=== PATIENT | female | born 1965 | race Caucasian/White ===

== ENCOUNTER → 2019-05-13 14:25 | Outpatient (BNVA) | payer BC, SELFPAY | PROVIDERS: Family Provider Family Medicine; PCP Family Medicine; Visit Provider Anesthesiology | DX: M54.2 Cervicalgia (principal); M47.816 Spondylosis without myelopathy or radiculopathy, lumbar region; M17.12 Unilateral primary osteoarthritis, left knee; Z79.891 Long term (current) use of opiate analgesic | CPT/HCPCS: 99214 ==

== ENCOUNTER → 2019-07-08 13:37 | Outpatient (BNVA) | payer BC, SELFPAY | PROVIDERS: Family Provider Family Medicine; PCP Family Medicine; Visit Provider Anesthesiology | DX: M17.12 Unilateral primary osteoarthritis, left knee (principal); M47.816 Spondylosis without myelopathy or radiculopathy, lumbar region; M25.511 Pain in right shoulder; M25.512 Pain in left shoulder; Z79.891 Long term (current) use of opiate analgesic | CPT/HCPCS: 99214 ==

== ENCOUNTER → 2019-10-21 13:04 | Outpatient (BNVA) | payer BC, SELFPAY | PROVIDERS: Family Provider Family Medicine; PCP Family Medicine; Visit Provider Nurse Practitioner | DX: M54.2 Cervicalgia (principal); M47.816 Spondylosis without myelopathy or radiculopathy, lumbar region; M54.41 Lumbago with sciatica, right side; M54.42 Lumbago with sciatica, left side; Z79.891 Long term (current) use of opiate analgesic | CPT/HCPCS: 99214 ==

== ENCOUNTER → 2019-10-27 17:57 | Outpatient (BNVA) | payer BC, SELFPAY | PROVIDERS: Family Provider Family Medicine; PCP Family Medicine; Visit Provider Family Medicine | DX: I10 Essential (primary) hypertension (principal) | CPT/HCPCS: 80053; 80061 ==

== ENCOUNTER → 2019-12-22 10:54 | Outpatient (BNVA) | payer BC, SELFPAY | PROVIDERS: Family Provider Family Medicine; PCP Family Medicine; Visit Provider Anesthesiology | DX: M47.816 Spondylosis without myelopathy or radiculopathy, lumbar region (principal); M54.9 Dorsalgia, unspecified; M17.12 Unilateral primary osteoarthritis, left knee; M54.2 Cervicalgia; Z79.891 Long term (current) use of opiate analgesic | CPT/HCPCS: 99214 ==

== ENCOUNTER → 2020-02-18 10:46 | Outpatient (BNVA) | payer BC, SELFPAY | PROVIDERS: Family Provider Family Medicine; PCP Family Medicine; Visit Provider Anesthesiology | DX: G89.29 Other chronic pain (principal); M47.816 Spondylosis without myelopathy or radiculopathy, lumbar region; M54.9 Dorsalgia, unspecified; M54.2 Cervicalgia; Z79.891 Long term (current) use of opiate analgesic | CPT/HCPCS: 99214 ==

== ENCOUNTER → 2020-04-19 12:58 | Outpatient (BNVA) | payer MEDICARE, SELFPAY | PROVIDERS: Family Provider Family Medicine; PCP Family Medicine; Visit Provider Anesthesiology | DX: G89.29 Other chronic pain (principal); M47.816 Spondylosis without myelopathy or radiculopathy, lumbar region; M54.9 Dorsalgia, unspecified; M54.2 Cervicalgia; Z79.891 Long term (current) use of opiate analgesic | CPT/HCPCS: 99214 ==

== ENCOUNTER → 2020-04-20 13:20 | Outpatient (BNVA) | payer MEDICARE, SELFPAY | PROVIDERS: Family Provider Family Medicine; PCP Family Medicine; Visit Provider Specialist | DX: M17.12 Unilateral primary osteoarthritis, left knee (principal) | CPT/HCPCS: 73560; 73565 ==

== ENCOUNTER → 2020-06-15 13:19 | Outpatient (BNVA) | payer MEDICARE, SELFPAY | PROVIDERS: Family Provider Family Medicine; PCP Family Medicine; Visit Provider Anesthesiology | DX: G89.29 Other chronic pain (principal); M47.816 Spondylosis without myelopathy or radiculopathy, lumbar region; M54.2 Cervicalgia; M54.9 Dorsalgia, unspecified; M17.12 Unilateral primary osteoarthritis, left knee; Z79.891 Long term (current) use of opiate analgesic | CPT/HCPCS: 99214 ==

== ENCOUNTER → 2020-06-22 11:22 | Outpatient (BNVA) | payer MEDICARE, SELFPAY | PROVIDERS: Family Provider Family Medicine; PCP Family Medicine; Visit Provider Family Medicine | DX: I10 Essential (primary) hypertension (principal); E78.2 Mixed hyperlipidemia; M54.2 Cervicalgia; M54.9 Dorsalgia, unspecified; G89.29 Other chronic pain | CPT/HCPCS: 80053; 80061 ==

== ENCOUNTER → 2020-08-23 12:45 | Outpatient (BNVA) | payer MEDICARE, SELFPAY | PROVIDERS: Family Provider Family Medicine; PCP Family Medicine; Visit Provider Anesthesiology | DX: G89.29 Other chronic pain (principal); M47.816 Spondylosis without myelopathy or radiculopathy, lumbar region; M54.2 Cervicalgia; M17.12 Unilateral primary osteoarthritis, left knee; M54.9 Dorsalgia, unspecified; Z79.891 Long term (current) use of opiate analgesic | CPT/HCPCS: 99214 ==

== ENCOUNTER → 2020-10-04 15:10 | Outpatient (BNVA) | payer MEDICARE, SELFPAY | PROVIDERS: Family Provider Family Medicine; PCP Family Medicine; Referring Provider Dermatology; Visit Provider Orthopaedic Surgery | DX: G89.29 Other chronic pain (principal); M43.13 Spondylolisthesis, cervicothoracic region; M43.16 Spondylolisthesis, lumbar region | CPT/HCPCS: 72050; 72110 ==

== ENCOUNTER → 2020-10-20 13:26 | Outpatient (BNVA) | payer MEDICARE, SELFPAY | PROVIDERS: Family Provider Family Medicine; PCP Family Medicine; Visit Provider Anesthesiology | DX: G89.29 Other chronic pain (principal); M47.816 Spondylosis without myelopathy or radiculopathy, lumbar region; M54.9 Dorsalgia, unspecified; M54.2 Cervicalgia; Z79.891 Long term (current) use of opiate analgesic; Z87.891 Personal history of nicotine dependence | CPT/HCPCS: 99213; 99214 ==

== ENCOUNTER → 2020-10-31 17:48 | Outpatient (BNVA) | payer MEDICARE, SELFPAY | PROVIDERS: Family Provider Family Medicine; PCP Family Medicine; Visit Provider Family Medicine | DX: Z12.4 Encounter for screening for malignant neoplasm of cervix (principal); Z01.419 Encounter for gynecological examination (general) (routine) without abnormal findings; Z11.3 Encounter for screening for infections with a predominantly sexual mode of transmission; Z72.51 High risk heterosexual behavior | CPT/HCPCS: 87491; 87591; 87661; 88175 ==

== ENCOUNTER → 2020-11-17 14:22 | Outpatient (BNVA) | payer MEDICARE, SELFPAY | PROVIDERS: Family Provider Family Medicine; PCP Family Medicine; Visit Provider Anesthesiology | DX: G89.29 Other chronic pain (principal); M47.816 Spondylosis without myelopathy or radiculopathy, lumbar region; M54.2 Cervicalgia; Z79.891 Long term (current) use of opiate analgesic | CPT/HCPCS: 99214 ==

== ENCOUNTER → 2021-01-19 11:50 | Outpatient (BNVA) | payer MEDICARE, SELFPAY | PROVIDERS: Family Provider Family Medicine; PCP Family Medicine; Visit Provider Family Medicine | DX: I10 Essential (primary) hypertension (principal); R53.83 Other fatigue; L65.9 Nonscarring hair loss, unspecified | CPT/HCPCS: 80053; 82607; 82652; 83540; 84443; 85025 ==

== ENCOUNTER → 2021-01-20 13:44 | Outpatient (BNVA) | payer MEDICARE, SELFPAY | PROVIDERS: Family Provider Family Medicine; PCP Family Medicine; Visit Provider Anesthesiology | DX: G89.29 Other chronic pain (principal); M54.2 Cervicalgia; M47.816 Spondylosis without myelopathy or radiculopathy, lumbar region; Z79.891 Long term (current) use of opiate analgesic | CPT/HCPCS: 99214 ==

== ENCOUNTER → 2021-02-17 10:24 | Outpatient (BNVA) | payer MEDICARE, SELFPAY | PROVIDERS: Family Provider Family Medicine; PCP Family Medicine; Visit Provider Anesthesiology | DX: G89.29 Other chronic pain (principal); M54.2 Cervicalgia; M47.816 Spondylosis without myelopathy or radiculopathy, lumbar region; Z79.891 Long term (current) use of opiate analgesic | CPT/HCPCS: 99214 ==

== ENCOUNTER → 2021-04-24 09:32 | Outpatient (BNVA) | payer MEDICARE, SELFPAY | PROVIDERS: Family Provider Family Medicine; PCP Family Medicine; Visit Provider Family Medicine | DX: M17.12 Unilateral primary osteoarthritis, left knee (principal); Z01.818 Encounter for other preprocedural examination | CPT/HCPCS: 71046; 80053; 85025; 85610 ==

== ENCOUNTER → 2021-04-25 14:30 | Outpatient (BNVA) | payer MEDICARE, SELFPAY | PROVIDERS: Family Provider Family Medicine; PCP Family Medicine; Visit Provider Anesthesiology | DX: G89.29 Other chronic pain (principal); M54.2 Cervicalgia; M47.816 Spondylosis without myelopathy or radiculopathy, lumbar region; Z79.891 Long term (current) use of opiate analgesic | CPT/HCPCS: 99214 ==

== ENCOUNTER → 2021-05-02 12:38 | Outpatient (BNVA) | payer MEDICARE, SELFPAY | PROVIDERS: Family Provider Family Medicine; PCP Family Medicine; Visit Provider Orthopaedic Surgery | DX: Z01.818 Encounter for other preprocedural examination; G89.29 Other chronic pain; M47.816 Spondylosis without myelopathy or radiculopathy, lumbar region; M54.2 Cervicalgia; M54.9 Dorsalgia, unspecified | CPT/HCPCS: 85730; 87635 ==

== ENCOUNTER → 2022-01-16 14:16 | Outpatient (BNVA) | payer MEDICARE, SELFPAY | PROVIDERS: Family Provider Family Medicine; PCP Family Medicine; Referring Provider Family Medicine; Visit Provider Orthopaedic Surgery | DX: M75.101 Unspecified rotator cuff tear or rupture of right shoulder, not specified as traumatic (principal); M19.011 Primary osteoarthritis, right shoulder | CPT/HCPCS: 99204; 99203 ==

== ENCOUNTER 2022-02-01 05:47 | Day surgery (SDC) | payer MEDICARE, SELFPAY ==
[2022-01-31 13:20] VITALS: BMI 26.6
[2022-02-01] VITALS (11 sets, daily range): BP systolic 96–130; BP diastolic 68–97; PULSE 75–95; RESP 15–22; TEMP 36.3–37.1; O2SAT 96–100
[2022-02-01] MEDS: ondansetron 2 mg/ML SDV 2 mL 4 MG IVP (06:25)
[2022-02-01] MEDS: scopolamine 1.5 Patch 1 PATCH TRANSDERMA (06:29)
[2022-02-01] MEDS: sodium chloride 0.9% 1,000 ML 30 ML IV (06:30)
[2022-02-01] MEDS: diphenhydrAMINE 50 mg/mL SDV 1mL 12.5 MG IVP (06:50)
[2022-02-01 07:07] LABS: Anion Gap 17.3 (5-19); Blood Urea Nitrogen 10 mg/dL (6-20); Calcium 10.3 mg/dL (8.5-10.5); Carbon Dioxide 25 mmol/L (22-29); Chloride 97 mmol/L (98-107); Creatinine Clr Calc Pharmacy 105.7071; Glomerular Filtration Rate 102.7 mL/min (90-130); Glucose 105 mg/dL (65-115); Osmolality Calculated 281 mOsm/kg (285-295); Potassium 3.3 mmol/L (3.5-5.1); Sodium 136 mmol/L (136-145)
--- NOTE | 2022-02-01 07:10 | W.PM.OPSUD ---
Surgery/Procedure H&P Update DATE OF PROCEDURE: February 01, 2022 DATE H&P PERFORMED: 01/16/22 H&P UPDATE INFORMATION: I have reviewed H&P completed within last 30 days PREOP DIAGNOSIS: Right rotator cuff tear, impingement, degenerative joint disease AC PLANNED PROCEDURE: Operation Date: 02/01/22 07:00 Proposed Procedures p arthroscopic right rotator cuff repair/ 55391,M75.10(Right) - Sarabjit Ludwig MD s Rotator Cuff Repair(Right) - Sarabjit Ludwig MD
[2022-02-01] MEDS: ceFAZolin 2,000 MG in sodium chloride 0.9% (plus) 50 ML 100 MG IV (07:14)
--- NOTE | 2022-02-01 07:53 | ANES.PREANE2 ---
Pre-Anesthetic Assessment Height/Weight: Height 1.68 m Weight 74.843 kg Temp Pulse Resp BP Pulse Ox O2 Del Method 97.9 F 86 18 130/97 100 02/01/22 06:09 02/01/22 06:09 02/01/22 06:09 02/01/22 06:09 02/01/22 06:09 02/01/22 06:11 Preop Diagnosis: Right rotator cuff tear, impingement, degenerative joint disease AC Operation Date: 02/01/22 07:00 Proposed Procedures p arthroscopic right rotator cuff repair/ 30426,M75.10(Right) - Sarabjit Ludwig MD s Rotator Cuff Repair(Right) - Sarabjit Ludwig MD Familial anesthetic complications: none Was Beta Bre taken within 24 hours: N/A Was Clonidine taken within 24 hours: N/A Last intake: Intake Last Liquid Date 01/31/22 Last Liquid Time 19:30 Last Solid Date 01/31/22 Last Solid Time 19:30 Social Tobacco and No alcohol Exam alert, oriented x 3 and regular rate & rhythm Airway Submandibular: within normal limits Cervical ROM: within normal limits Mallampati: Class II Dentition: full Pulmonary Chronic Obstructive Pulmonary Disease CV/HEM Hypertension Musc/[facility] Osteoarthritis/DJD Anesthetic Plan ASA status: 3 Anesthesia: General and Regional (specify below) (right interscalene nerve blk) Medications/Allergies Home Medications Medication Instructions Recorded Confirmed Last Taken Type amlodipine 10 mg tablet 10 mg PO DAILY 90 days #90 tabs 01/19/21 02/01/22 02/01/22 Rx ibuprofen 800 mg tablet 800 mg PO Q8H PRN Pain, Moderate 01/31/22 02/01/22 01/18/22 History lisinopril 20 20 tab PO DAILY 02/01/22 02/01/22 01/31/22 History mg-hydrochlorothiazide 12.5 mg tablet Allergies Allergy/AdvReac Type Severity Reaction Status Date / Time gabapentin Allergy Severe ALGY-Joint Verified 01/31/22 13:16 Pain Current Medications Generic Name Dose Route Start Last Admin Trade Name Freq PRN Reason Stop Dose Admin Sodium Chloride 1,000 mls @ 30 mls/hr 02/01/22 06:00 02/01/22 06:30 Sodium Chloride 0.9% IV 02/02/22 05:59 30 mls/hr .Q24H MARIELA Administration Ondansetron HCl 4 mg 02/01/22 05:59 02/01/22 06:25 Ondansetron 2 Mg/Ml Sdv 2 Ml IVP 4 mg Q5M PRN Administration NAUSEA AND VOMITING PFSH Anesthesia Medical History Chronic neck and back pain Hypertension Localized osteoarthritis of left knee halfway (current) use of opiate analgesic Lumbar spondylosis Mixed hyperlipidemia Opioid contract exists Surgical History H/O arthroscopic knee surgery H/O thumb surgery History of lumbar surgery S/P rotator cuff repair Family History Other Cancer Social History Smoking and tobacco status: former smoker Second hand smoke exposure: Yes Alcohol intake: former History of recent travel: No Data Anesthesia : 02/01/22 06:23 BMP 02/01/22 06:23 Sodium 136 Potassium 3.3 L Chloride 97 L Carbon Dioxide 25 BUN 10 Creatinine 0.6 Glucose 105 Calcium 10.3 Cardiac Studies: No Data to Display Anesthesia Procedures Nerve Block Nerve Block 1: Main Anesthesia: general anesthesia Time Out Performed: Yes Consent: requested by attending/covering physician, from patient, risks and benefits reviewed and patient agrees to proceed Nerve block location: interscalene (right) Anesthesia monitors applied: pulse oximetry, EKG, BP cuff and oxygen Anesthetic Used: ropivicaine 0.5% Amount of anesthesia used (mL): 30 Ultrasound used to: recognize landmarks and visualize and ID brachial plexus Nerve Stimulator Used?: No Interscalene/Femoral BLK: 2 stimuplex 22 g needle used for position and inplane approach Injection: neg aspiration of heme Patient Tolerated Procedure: well
--- NOTE | 2022-02-01 09:51 | PM.OP ---
Operative Report Date of procedure: February 01, 2022 Pre-op diagnosis: Preop Diagnosis Right rotator cuff tear, impingement, degenerative joint disease AC Post-op diagnosis: same Post-op findings: Full-thickness retracted tear rotator cuff, impingement, degenerative joint disease right acromioclavicular joint, partial tear biceps tendon right shoulder Procedure done: Arthroscopic rotator cuff repairarthroscopic distal clavicle excision, subacromial decompression, arthroscopic biceps tenotomy. Implants: [employer]hew Helicoil 4.5 mm anchors x3, [employer] Multifix 5.5 mm anchors x2, [employer]hew Regeneten patch, Q fix anchor implanted but removed Pathology: none sent Surgeon: Sarabjit Ludwig Anesthesia: General and Nerve Block (Interscalene block) Estimated blood loss (mL): 10 Complications: None Findings: The patient had a large tear involving the entirety of the supraspinatus and leading edge of the infraspinatus with retraction to the level of the glenoid. The tendon was are relatively mobile and bone quality fair. She had spurring of her anterior acromion. She has enlargement and instability of her acromioclavicular joint. She had a prominent anterior curvature and spurring of the leading edge of her acromion which encroach on the rotator cuff she had tearing of her intra-articular biceps is extended into the bicipital groove. Condition: stable Disposition: PACU Procedure: The patient was given a interscalene block and taken to the operating room. She was given 2 g of Ancef. She was positioned in the lateral position with her arm and 10 pounds of traction. A timeout was performed. The shoulder was initially entered through a posterior portal 2 cm inferior medial to the posterior corner of acromion. A scope cannula and trocar were driven into the glenohumeral joint. An 8 mm inflow cannula was placed anteriorly. The very large tear of the rotator cuff was identified as was the partial tearing of the biceps. The scope could then be easily redirected into the subacromial space as was the anterior portal. A lateral portal was also opened up with a scalpel blade. Initial attention was paid to the subacromial spurring. A 5.5 mm acromionizer was introduced in the lateral portal. Working through the portal approximately 4 mm of anterior and inferior acromion were removed. This served the purpose of making more room and a better vascular environment for future patch placement and eliminated any mechanical irritation on our future repair. The acromionizer was then moved to the anterior portal. Working alternatively with the [employer]hew Werewolf and acromionizer approximately 8 mm of distal clavicle were then removed. The biceps tendon was inspected with the degree of tearing was felt the biceps would need to be addressed. I initially the bicipital groove was debrided. A single Q fix anchor was placed in the bicipital groove and passed around the tendon a luggage tag type suture. In the process of securing the anchor pulled out of the soft bone. It was thought at this point better to proceed with a simple tenotomy. The werewolf cautery was introduced and the biceps was released from its attachment on the superior labrum. Final attention was focused on the rotator cuff. The [employer]hew Werewolf was used to debride the rotator cuff back to stable margins. This revealed a large tear of the supraspinatus and leading edge of the infraspinatus with the supraspinatus retracted just medial to the glenoid. However with a grasper could be brought nearly back to the greater tuberosity. Decision was made to proceed with attempted double row repair with a slightly medialized attachment. The acromionizer was used to debride the greater tuberosity and remove approximately 4 mm of the most lateral articular cartilage. Through a posterior lateral stab wound a [employer]hew Helicoil 4.5 mm anchor was placed in the posterior medial debrided footprint. A [employer]hew FirstPass suture passer was used to retrieve each limb of tape through the posterior rotator cuff approximately 5 mm from the edge. This was repeated with a second anchor through the central rotator cuff and the third through the anterior rotator cuff. Each tape was secured with a sliding Ga knot and alternating half hitches bringing the medial cuff to the medial bone. Next 1 suture from each anchor was retrieved through the lateral cannula. A [employer]hew Multifix anchor was then placed in the posterior lateral footprint in each suture secured into that anchor. A second [employer]hew Multifix anchor was placed in the anterior lateral footprint. These sutures eli the more lateral rotator cuff down. As tendon quality was suspected a decision was made to proceed with addition of a biological implant. A more lateral distal incision was made with a scalpel. Through that the [employer] Regeneten implant was placed covering the distal rotator cuff and bony footprint. It was fixed medially with 4 soft tissue aisha and laterally with 3 bone aisha leg over and reinforcing the repair. Arthroscopic equipment was removed. Portals were closed with 3-0 Prolene. Sterile dressings were applied. The patient was placed in abduction pillow, extubated, and taken recovery room in stable condition. Postop rehab plan: Rehabilitation will be restricted due to the magnitude of the tear and poor tendon and bone quality. Patient will be limited to active range of motion of the elbow and pendulum exercises for the first month. She will participate in full passive range of motion for the next month. Progressed with active assisted range of motion for the next month. She can begin formal strengthening at 3 months time.
--- NOTE | 2022-02-01 13:02 | ANE.PACU2 ---
Inpatient post-anesthesia follow up: Airway intact: Yes Vital signs: Temperature 98.7 F Pulse Rate 75 Respiratory Rate 18 Blood Pressure 113/75 Pulse Oximetry 97 Oxygen Delivery Me thod Room Air Oxygen Flow Rate 5 Fraction of Inspir ed Oxygen Hydration adequate: Yes Nausea and vomiting: No Pain level: 1 Mental status: Baseline
== END 2022-02-01 11:16 | disposition home or self-care (01) ==
PROVIDERS: Anesthesiology; PCP Family Medicine; Visit Provider Orthopaedic Surgery
PROC: (CPT 29805; principal; 2022-02-01 07:00)
PROC: (CPT 29826; 2022-02-01 07:00)
DX: M75.101 Unspecified rotator cuff tear or rupture of right shoulder, not specified as traumatic (principal); M25.811 Other specified joint disorders, right shoulder; M19.011 Primary osteoarthritis, right shoulder; J44.9 Chronic obstructive pulmonary disease, unspecified; I10 Essential (primary) hypertension; E78.2 Mixed hyperlipidemia; Z87.891 Personal history of nicotine dependence
CPT/HCPCS: 29826; 29827; 29828; 36592; 80048; C1713; J1100; J1200; J1885; J2250; J2405; J2704; J2795; J3010; J3490; J7030

== ENCOUNTER → 2022-02-07 09:54 | Outpatient (BNVA) | payer MEDICARE, SELFPAY | PROVIDERS: PCP Family Medicine; Visit Provider Nurse Practitioner Family | DX: Z98.890 Other specified postprocedural states (principal) | CPT/HCPCS: 99024 ==

== ENCOUNTER → 2022-02-14 08:58 | Outpatient (BNVA) | payer MEDICARE, SELFPAY | PROVIDERS: PCP Family Medicine; Visit Provider Nurse Practitioner Family | DX: Z98.890 Other specified postprocedural states (principal) | CPT/HCPCS: 99213 ==

== ENCOUNTER → 2022-03-20 09:09 | Outpatient (BNVA) | payer MEDICARE, SELFPAY | PROVIDERS: PCP Family Medicine; Visit Provider Nurse Practitioner Family | DX: Z47.89 Encounter for other orthopedic aftercare (principal) | CPT/HCPCS: 99213 ==

== ENCOUNTER → 2022-05-01 10:49 | Outpatient (BNVA) | payer MEDICARE, SELFPAY | PROVIDERS: PCP Family Medicine; Visit Provider Nurse Practitioner Family | DX: Z98.890 Other specified postprocedural states (principal) | CPT/HCPCS: 99213 ==

== ENCOUNTER → 2022-06-27 09:58 | Outpatient (BNVA) | payer MEDICARE, SELFPAY | PROVIDERS: PCP Family Medicine; Visit Provider Nurse Practitioner Family | DX: Z47.89 Encounter for other orthopedic aftercare (principal) | CPT/HCPCS: 99213 ==